=== PATIENT | male | born 1970 | race Caucasian/White ===

== ENCOUNTER 2016-11-10 21:15 | Emergency (ER) | payer OTHER ==
[2016-11-10 21:50] VITALS: BP 133/85; PULSE 69; RESP 16; TEMP 98.1; O2SAT 95
--- NOTE | 2016-11-10 22:02 | UCPHY ---
[id number] This patient was working on a bathroom rebuild at home when he sustained the large wood splinter to his right forearm shortly prior to arrival. He was able to remove part of the splinter but feels they are still retained wooden foreign body in his right forearm with mild discomfort. He notes only localized pain with no other associated symptoms. ROS: No numbness. No difficulty moving the affected arm. 5 point ROS is otherwise negative. Smoking Status: Never smoked Physical Exam: Physical Exam Vital signs are normal. General: No acute distress Eyes: Pupils equal and react to light. Extraocular motions are intact. Lungs: No respiratory distress. Cardiac: Brisk capillary refill is intact throughout. Pulses are 2+ and symmetric in the affected extremity. Skin: No rash or pallor. There is a small puncture wound to the right volar forearm with slight swelling just proximal this that seems to be a foreign body that is not visible on direct examination. He has mild tenderness associated with this. No active bleeding. Neuro: Alert with no sensorimotor deficits. Constitutional: Initial Vital Signs Temperature (C) 36.7 C 11/10/16 21:30 Heart Rate 69 11/10/16 21:30 Respiratory Rate 16 11/10/16 21:30 Blood Pressure 133/85 H 11/10/16 21:30 O2 Sat (%) 95 11/10/16 21:30 O2 Delivery Mode Room Air Allergies/Adverse Reactions: No Known Allergies Allergy (Verified 11/10/16 21:35) Home Medications: Medication Instructions Recorded Cetirizine [ZyrTEC 10 mg (RX)] 10 mg PO DAILY 06/10/12 Allopurinol 11/10/16 Janumet 50-500 mg Tablet 11/10/16 Xarelto 11/10/16 MDM/Departure - MDM Procedures: Foreign body removal: After verbal consent eyes scrub the area with chlorhexidine and then used 1% plain lidocaine with sodium bicarb buffer, 27 gauge needle, injected 2 mL with good effect and then made a small incision with a 10. Scalpel blade approximately 1 cm exposing a wooden foreign bodies able to visualize the magnifying loops and removed with splinter forceps. I then scrub the wound again irrigated with small amount of saline. I placed 1 interrupted suture with 5 0 Ethilon there other to reapproximate the wound. Patient tolerated this well. There were no complications. A dressing was placed. We counseled regarding wound care. - Depart Disposition: Home, Routine, Self-Care Clinical Impression: Splinter of forearm without major open wound Qualifiers: Qualifier Code: (S50.851A) Superficial foreign body of right forearm, initial encounter Condition: Good Instructions: Care For Your Stitches (ED) Additional Instructions: Diagnosis: Splinter of right forearm-removed Plan: Keep the wound clean and dry for 2 days. Then clean with warm soapy water daily Return for suture removal in 10 days. Return sooner if he develops redness, discharge or other concerns for infection. Referrals: Chely Powell MD [Primary Care Provider] - As per Instructions - PQRS PQRS Measurement: NA
== END 2016-11-10 22:22 | disposition home or self-care (01) ==
LOC: CED 21:15
PROC: 0HCDXZZ Extirpation of Matter from Right Lower Arm Skin, External Approach (ICD-10-PCS; principal; 2016-11-10)
DX: S51.841A Puncture wound with foreign body of right forearm, initial encounter (principal); W22.8XXA Striking against or struck by other objects, initial encounter; Y92.012 Bathroom of single-family (private) house as the place of occurrence of the external cause; Y93.H3 Activity, building and construction
CPT/HCPCS: G0463-PO

== ENCOUNTER 2017-04-08 14:06 | Emergency (ER) | payer OTHER ==
[2017-04-08 14:16] VITALS: BP 130/74; PULSE 74; RESP 16; TEMP 98.1; O2SAT 95
--- NOTE | 2017-04-08 14:28 | EDPHY ---
H & P Stated Complaint: right thumb bleeding Time Seen by Provider: 04/08/17 14:22 HPI/ROS: CHIEF COMPLAINT: Thumb nail injury HISTORY OF PRESENT ILLNESS: The patient is a 46-year-old man who comes to the emergency department complaining it injury to his right thumbnail. He was drilling and slipped off the drill and hit his thumb nail. He drilled through his thumbnail but does not think he hit the bone. It did not go through and through. He is on Xarelto and has had a slight oozing ever since. He states that he has gone through 3 Band-Aids. REVIEW OF SYSTEMS: Constitutional: denies: chills, fever, recent illness, recent injury EENTM: denies: blurred vision, double vision, nose congestion Respiratory: denies: cough, shortness of breath Cardiac: denies: chest pain, irregular heart rate, lightheadedness, palpitations Gastrointestinal/Abdominal: denies: abdominal pain, diarrhea, nausea, vomiting, blood streaked stools Genitourinary: denies: dysuria, frequency, hematuria, pain Musculoskeletal: denies: joint pain, muscle pain Skin: See HPI Neurological: denies: headache, numbness, paresthesia, tingling, dizziness, weakness Hematologic/Lymphatic: denies: blood clots, easy bleeding, easy bruising Immunologic/allergic: denies: HIV/AIDS, transplant EXAM: GENERAL: Well-appearing, well-nourished and in no acute distress. HEAD: Atraumatic, normocephalic. EYES: Pupils equal round and reactive to light, extraocular movements intact, sclera anicteric, conjunctiva are normal. ENT: TMs normal, nares patent, oropharynx clear without exudates. Moist mucous membranes. NECK: Normal range of motion, supple without lymphadenopathy or JVD. LUNGS: Breath sounds clear to auscultation bilaterally and equal. No wheezes rales or rhonchi. HEART: Regular rate and rhythm without murmurs, rubs or gallops. ABDOMEN: Soft, nontender, normoactive bowel sounds. No guarding, no rebound. No masses appreciated. BACK: No CVA tenderness, no spinal tenderness, step-offs or deformities EXTREMITIES: Normal range of motion, no pitting or edema. No clubbing or cyanosis. NEUROLOGICAL: Cranial nerves II through XII grossly intact. Normal speech, normal gait. 5/5 strength, normal movement in all extremities, normal sensation PSYCH: Normal mood, normal affect. SKIN: Small puncture wound just off from center in his right thumbnail. Bleeding controlled. No subungual hematoma. Source: Patient Exam Limitations: No limitations - Personal History Tetanus Vaccine Date: 2014 - Medical/Surgical History Hx Asthma: No Hx Chronic Respiratory Disease: No Hx Diabetes: Yes Hx Cardiac Disease: No Hx Renal Disease: No Hx Cirrhosis: No Hx Alcoholism: No Hx HIV/AIDS: No Hx Splenectomy or Spleen Trauma: No Other PMH: Med hx-diabetes, dvt and bilat PE,appy,umbilical hernia, ortho surg - Family History Significant Family History: No pertinent family hx - Social History Smoking Status: Never smoked Alcohol Use: Sober Drug Use: None Constitutional: Initial Vital Signs Temperature (C) 36.7 C 04/08/17 14:15 Heart Rate 74 04/08/17 14:15 Respiratory Rate 16 04/08/17 14:15 Blood Pressure 130/74 H 04/08/17 14:15 O2 Sat (%) 95 04/08/17 14:15 O2 Delivery Mode Room Air Allergies/Adverse Reactions: No Known Allergies Allergy (Verified 04/08/17 14:16) Home Medications: Medication Instructions Recorded Cetirizine [ZyrTEC 10 mg (RX)] 10 mg PO DAILY 06/10/12 Allopurinol 11/10/16 Janumet 50-500 mg Tablet 11/10/16 Xarelto 11/10/16 Medical Decision Making - Diagnostics Imaging: I viewed and interpreted images myself ED Course/Re-evaluation: We discussed the x-ray results. The patient is reassured. His wound was cleaned and irrigated and dressed with antibiotic ointment and sterile dressing. He is happy with this declines further workup or testing. Differential Diagnosis: Partial list of the Differential diagnosis considered include but were not limited to; fingernail injury, subungual hematoma, open fracture, and although unlikely based on the history and physical exam, I also considered foreign body , infection. I discussed these differential diagnoses and the plan with the patient as well as the usual and expected course. The patient understands that the diagnosis is provisional and that in medicine we are not always correct and that further workup is often warranted. Usual and customary warnings were given. All of the patient's questions were answered. The patient was instructed to return to the emergency department should the symptoms at all worsen or return, otherwise to followup with the physician as we discussed. Departure - Departure Disposition: Home, Routine, Self-Care Clinical Impression: Injury to fingernail Qualifiers: Encounter type: initial encounter Laterality: right Qualified Code(s): S69.91XA - Unspecified injury of right wrist, hand and finger(s), initial encounter Condition: Good Instructions: Subungual Hematoma (ED) Referrals: Chely Powell MD [Primary Care Provider] - As per Instructions
== END 2017-04-08 14:55 | disposition home or self-care (01) ==
LOC: CED 14:06
DX: S69.91XA Unspecified injury of right wrist, hand and finger(s), initial encounter (principal); E11.9 Type 2 diabetes mellitus without complications; Z79.01 Long term (current) use of anticoagulants; W29.8XXA Contact with other powered hand tools and household machinery, initial encounter; Y99.8 Other external cause status; Y93.89 Activity, other specified
CPT/HCPCS: 73140-PO